=== PATIENT | male | born 1970 | race Caucasian/White ===

== ENCOUNTER 2016-07-03 13:51 | Emergency (ER) | payer SELFPAY ==
[~2016-07-03] VITALS: Ht 193 cm; Wt 124.4 kg
[2016-07-03 13:56] VITALS: BP 173/110; PULSE 82; RESP 16; TEMP 98.5; O2SAT 96
[2016-07-03] MEDS ORDERED: DEXAMETHASONE SOD PHOS 4 MG/ML VIAL IM ONE (14:15)
[2016-07-03] MEDS ORDERED: PENICILLIN G BENZATHINE 1,200,000 UNITS/2 ML SYRINGE IM ONE (14:15)
--- NOTE | 2016-07-03 14:26 | PD ---
HPI Chief Complaint: ENT Complaint Time Seen by Provider: 14:04 Travel History International Travel<30 days: No Contact w/Intl Traveler<30days: No Traveled to known affect area: No History of Present Illness HPI 46-year-old male sudden a few days of sore throat. He reports some generalized malaise for a few days. Due to the presence of symmetric white lesions on the lateral aspects of the tongue patient arrives for evaluation. Chills at night reported. Patient also has a rash about the legs and back. Patient shaved affect areas which seems not to have made a difference. Location skin and ENT. Timing constant. Severity moderate. Onset gradual. PFSH Social History Tobacco Use: Yes Allergies-Medications (Allergen,Severity, Reaction): Coded Allergies: Tramadol (Verified Allergy, Severe, LOOSES VOICE, 07/03/16) Review of Systems Except as stated in HPI: all other systems reviewed are Neg General / Constitutional: No: Fever Physical Exam Narrative GENERAL: 46 yo M, WNWD SKIN: Blanching erythematous lesions up to 2mm about hair follicles on back, thighs and buttocks. no confluent lesion. no warmth induration erythema. HEAD: Atraumatic. Normocephalic. EYES: Pupils equal and round. No scleral icterus. No injection or drainage. ENT: No nasal bleeding or discharge. Mucous membranes pink and moist. Tender anterior neck adenopathy. Minimal exudate along the left tonsil. Approx 1cm white lesions along the lateral aspect of the tongue in a symmetric fashion. Adjacent broken dentition present. NECK: Trachea midline. No JVD. CARDIOVASCULAR: Regular rate and rhythm. RESPIRATORY: No accessory muscle use. Clear to auscultation. Breath sounds equal bilaterally. GASTROINTESTINAL: Abdomen soft, non-tender, nondistended. Hepatic and splenic margins not palpable. MUSCULOSKELETAL: Extremities without clubbing, cyanosis, or edema. No obvious deformities. NEUROLOGICAL: Awake and alert. No obvious cranial nerve deficits. Motor grossly within normal limits. Five out of 5 muscle strength in the arms and legs. Normal speech. PSYCHIATRIC: Appropriate mood and affect; insight and judgment normal. Data Data Last Documented VS Vital Signs Date Time Temp Pulse Resp B/P Pulse Ox O2 Delivery O2 Flow Rate FiO2 07/03/16 13:56 98.5 82 16 173/110 96 VS reviewed Orders Penicillin G Benzathine Inj (Bicillin L- (07/03/16 14:15) Dexamethasone Inj (Decadron Inj) (07/03/16 14:15) MDM Medical Decision Making Medical Screen Exam Complete: Yes Emergency Medical Condition: Yes Medical Record Reviewed: Yes Differential Diagnosis Strep pharyngitis, viral pharyngitis, peritonsillar abscess, angioedema, anaphylaxis, dermatitis Narrative Course Presentation could reflect a streptococcal pharyngitis with tender adenopathy and minimal exudate on the left tonsil. We'll provide penicillin injection here. Decadron also provided. The rash is nonspecific most likely a mild dermatitis or comedogenic swath of lesions at the shaved hair follicle bases. White lesions on the tongue appear to be chronic change from irritation from adjacent broken teeth. Diagnosis Primary Impression: Pharyngitis Qualified Code: J02.9 - Pharyngitis, unspecified etiology Additional Impression: Rash Referrals: Primary Care Physician 2 days Additional Instructions: You have a choice when it comes to health care, and we are glad that you chose [facility]. Hopefully, we have met your expectations on today's visit. You are welcome to return to [facility] at any time, as we are committed to meeting the health care needs of our community. Med/Other Pt SpecificInfo: No Change to Meds Disposition: 01 DISCHARGE HOME Condition: Kd Dennis MD Jul 03, 2016 14:26
[2016-07-03] MEDS ORDERED: HYDR25TA5 PO (14:27)
[2016-07-03 15:25] VITALS: BP 169/78
== END 2016-07-03 15:25 | disposition home or self-care (01) ==
LOC: EDBD → PHED 13:51
DX: J02.9 Acute pharyngitis, unspecified (principal); R21 Rash and other nonspecific skin eruption; K13.79 Other lesions of oral mucosa; R53.81 Other malaise; Z72.0 Tobacco use
CPT/HCPCS: 96372; 99283; J0561; J1100

== ENCOUNTER 2017-08-10 10:02 | Emergency (ER) | payer SELFPAY ==
[~2017-08-10] VITALS: Ht 193 cm; Wt 134.0 kg
[~2017-08-10 10:02] MED LIST: HYDR25TA5 PO
[2017-08-10 10:05] VITALS: BP 189/113; PULSE 97; RESP 16; TEMP 98.5; O2SAT 97
[2017-08-10] MEDS ORDERED: AMLO5 PO (10:10)
[2017-08-10] MEDS ORDERED: ACETAMINOPHEN/HYDROcodone 325 MG/5 MG TAB PO ONE (10:15)
[2017-08-10] MEDS ORDERED: PENI500T PO (10:19)
[2017-08-10] MEDS ORDERED: NORC5TAB PO (10:19)
--- NOTE | 2017-08-10 10:19 | PD ---
HPI Chief Complaint: Oral / Dental Pain or Problem Time Seen by Provider: 10:12 Travel History International Travel<30 days: No Contact w/Intl Traveler<30days: No Traveled to known affect area: No History of Present Illness HPI Patient is a 47-year-old male who comes in complaining of dental pain. He says it is been going on for the past 2 days and got worse last night. He has tried taking ibuprofen without relief of the pain. He denies fever chills. Denies any difficulty swallowing or breathing. Severity is mild to moderate. PFSH Past Medical History Hypertension: Yes Past Surgical History Body Medical Devices: PLATES LEFT ANKLE Social History Alcohol Use: Yes (2 beers daily) Tobacco Use: Yes (1 /2 PPD) Substance Use: No Allergies-Medications (Allergen,Severity, Reaction): Coded Allergies: tramadol (Unverified Allergy, Severe, LOSES VOICE, 08/10/17) Reported Meds & Prescriptions Reported Meds & Active Scripts Active Reported Norvasc (Amlodipine Besylate) 5 Mg Tab 5 Mg PO DAILY Review of Systems General / Constitutional: No: Fever, Chills HENT: Positive: Dental Difficulties, No: Headaches, Lightheadedness, Sore Throat Cardiovascular: No: Chest Pain or Discomfort Respiratory: No: Shortness of Breath Gastrointestinal: No: Nausea, Vomiting Skin: No Rash, No Change in Pigmentation Neurologic: No: Weakness, Dizziness Physical Exam Narrative GENERAL: Awake and alert, in no acute distress. SKIN: Focused skin assessment warm/dry. No wounds or signs of infection. HEAD: Atraumatic. Normocephalic. EYES: Pupils equal and round. No scleral icterus. ENT: Broken right upper incisor, no abscess. Gums are inflamed and erythematous. Mucous membranes pink and moist. CARDIOVASCULAR: Regular rate and rhythm. No murmur appreciated. RESPIRATORY: No accessory muscle use. Clear to auscultation. Breath sounds equal bilaterally. MUSCULOSKELETAL: No obvious deformities. No clubbing. No cyanosis. No edema. NEUROLOGICAL: Awake and alert. No obvious cranial nerve deficits. Motor grossly within normal limits. Normal speech. Data Data Last Documented VS Vital Signs Date Time Temp Pulse Resp B/P (MAP) Pulse Ox O2 Delivery O2 Flow Rate FiO2 08/10/17 10:05 98.5 97 16 189/113 (138) 97 MDM Medical Decision Making Medical Screen Exam Complete: Yes Emergency Medical Condition: Yes Medical Record Reviewed: Yes Differential Diagnosis Dental infection versus broken tooth versus abscess Narrative Course Patient is a 47-year-old male who comes in complaining of tooth pain. Exam shows broken teeth as well as erythematous gums. There is no sign of abscess. Patient given a [place] for pain. He will be discharged with prescriptions for penicillin as well as [place]. Advised follow-up with the dentist. Advised return to the ED as needed for any worsening symptoms. Diagnosis Primary Impression: Pain, dental Patient Instructions: General Instructions, Toothache (ED) Additional Instructions: Take all of your antibiotic. Follow-up with the dentist. Return to the ED as needed for any worsening symptoms. Scripts Hydrocodone-Acetaminophen ([place]) 5 Mg-325 Mg Tab 1 TAB PO Q6H Y for PAIN, #7 TAB 0 Refills Prov: Nani Watson MD 08/10/17 Penicillin V Potassium (Penicillin V Potassium) 500 Mg Tab 500 MG PO Q6H for Infection for 7 Days, #28 TAB 0 Refills Prov: Nani Watson MD 08/10/17 Disposition: 01 DISCHARGE HOME Condition: Stable Nani Watson MD August 10, 2017 10:19
== END 2017-08-10 10:51 | disposition home or self-care (01) ==
LOC: PHEFT 10:02
DX: K08.89 Other specified disorders of teeth and supporting structures (principal); I10 Essential (primary) hypertension; F17.200 Nicotine dependence, unspecified, uncomplicated
CPT/HCPCS: 99283